=== PATIENT | female | born 1960 | race Caucasian/White ===

== ENCOUNTER → 2017-10-16 | Outpatient (CLI) | payer OTHER | LOC: CIMAGING 12:11 | PROVIDERS: ATTEND Family Medicine | DX: Z12.31 Encounter for screening mammogram for malignant neoplasm of breast (principal) | CPT/HCPCS: G0202 ==

== ENCOUNTER → 2018-06-23 | Outpatient (CLI) | payer OTHER | DX: M79.621 Pain in right upper arm (principal) ==

== ENCOUNTER 2018-07-25 18:32 | Emergency (ER) | payer OTHER ==
[2018-07-25] MEDS ORDERED: NS 1,000 ML IV ONE ×3 (19:02→23:05)
--- NOTE | 2018-07-25 19:28 | CPEKG ---
Test Reason : OPEN Blood Pressure : / mmHG Vent. Rate : 088 BPM Atrial Rate : 088 BPM P-R Int : 145 ms QRS Dur : 100 ms QT Int : 356 ms P-R-T Axes : 071 064 071 degrees QTc Int : 431 ms Sinus rhythm Confirmed by Reymundo Cutler ([id number]) on 07/25/2018 7:27:54 PM Referred By: Confirmed By:Reymundo Cutler
--- NOTE | 2018-07-25 19:32 | EDPHY ---
H & P Stated Complaint: Fainted twice yesterday . No injury. Chills . Time Seen by Provider: 07/25/18 18:49 HPI/ROS: This patient complains of generalized weakness, nausea and syncope x2. Patient developed slight increase in her loose stools from her baseline 3 or 4 day over the past 3 days. She also had associated nausea. She explains that she has rested in bed in been taking mostly fluids because of nausea and her is worried that if she ate solid food she would vomit. She limited her p.o. Food intake to soup and has been drinking fluids with occasional piece of toast with peanut butter. Last night at 9:00 p.m. She felt lightheaded while in her bedroom and mention this to her who walked over and caught her as she had a syncopal episode using her down to the floor where she was briefly unconscious he estimates under a minute and then felt weak on the floor for approximately 10 min prior to being able to stand up again. Then at 2:00 a.m. This morning While having a bowel movement she had a syncopal episode on the toilet as well with her at her side again. This was fleeting lasting only a few seconds per . She did not fall to the floor from that episode. Due to ongoing feeling of generalized weakness and nausea she came in for further evaluation. ROS: Constitutional: No fevers. Positive fatigue. HEENT: No URI symptoms. No sore throat. Pulmonary: No cough shortness of breath Cardiovascular: No chest pain heart palpitations or lower extremity swelling. She does have lower extremity pain left lower extremity. She attributes this to muscle cramping from potassium issues. 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 She reports typically having 4 episodes of loose stool a day on average in does not report any significant change from this recently. She does have some mild bloating and flatulence recently but no significant pain has no abdominal pain currently. No bloody stools. Nausea but no vomiting. : No dysuria frequency urgency. Integumentary: No rash pallor diaphoresis Musculoskeletal: Leg cramps as above. No recent injuries. She also complains of low back pain that she thinks is musculoskeletal due to lying in bed for 2 days and describes this is mild in achy in nature. 10 point review of symptoms is performed and otherwise negative with exception of pertinent positives and negatives listed in HPI and ROS Source: Patient, Family (Her also provides history.) Exam Limitations: No limitations - Medical/Surgical History Other PMH: intestinal bypass. Csec x 3. eletrolyte disturbance. Hypothyroid. She states that her blood pressure is low at baseline but does not know at her baseline BP runs. - Family History Significant Family History: Vascular disease (Her mother had a history of DVTs) - Social History Smoking Status: Never smoked Alcohol Use: None Drug Use: None - Physical Exam Exam: General Appearance: Alert, no distress. Eyes: Pupils equal and round no pallor or injection. ENT, Mouth: Mucous membranes dry. Respiratory: There are no retractions, lungs are clear to auscultation. Cardiovascular: Regular rate and rhythm. No murmur gallop rub. No peripheral edema. She does have left calf tenderness and negative Homans Gastrointestinal: Hyperactive bowel sounds, soft, nontender. No significant bloating at this time Back: No CVA tenderness Neurological: GCS 15 with no focal deficits. Skin: Warm and dry, no rashes. Musculoskeletal: Neck is supple nontender. Extremities are symmetrical, full range of motion. Psychiatric: Mood and affect are normal DIFFERENTIAL DIAGNOSIS: After history and physical exam differential diagnosis was considered for viral illness, dehydration, metabolic disarray, myocardial ischemic disease, vasovagal syncope, DVT Constitutional: Initial Vital Signs Temperature (C) 37.7 C 07/25/18 18:44 Heart Rate 93 07/25/18 18:44 Respiratory Rate 16 07/25/18 18:44 Blood Pressure 84/54 L 07/25/18 18:44 O2 Sat (%) 100 07/25/18 18:44 O2 Delivery Mode Room Air Allergies/Adverse Reactions: Penicillins Allergy (Verified 07/25/18 18:50) Home Medications: Medication Instructions Recorded [place] Thyroid 07/25/18 Calcium 07/25/18 Potassium Cl 07/25/18 Medical Decision Making - Diagnostics EKG Interpretation: 12 lead EKG performed at 7:18 p.m. Reveals sinus rhythm at 88. Intervals: Normal throughout [place]: Normal throughout ST segments: Normal throughout Overall assessment: Normal EKG Imaging Results: Imaging Impressions Extremity Venous Study 07/25/18 19:37 Impression: Short segment thrombus distal right peroneal vein. Otherwise, no additional deep venous thrombosis in the right and left lower extremity. Findings discussed with Reymundo Cutler M.D. at 21:09 hour, 07/25/2018. Chest X-Ray 07/25/18 20:33 Impression: Normal chest x-ray. Chest/Thorax CTA 07/25/18 21:12 Impression: 1. No evidence of pulmonary embolus using CT protocol. 2. Haziness in the perinephric fat over the kidneys superiorly right side more than left. Findings are nonspecific. Consider pyelonephritis. 3. 1 cm gallstone identified. Findings discussed with Reymundo Cutler M.D. at 22:14 hour, 07/25/2018. Two view chest x-ray: Normal by my interpretation Imaging: Discussed imaging studies w/ yard caller Radiologist (Doppler ultrasound and CT angio chest), I viewed and interpreted images myself (Chest x-ray) ED Course/Re-evaluation: IV normal saline bolus Saline bolus with resolution of Hypotension Tylenol p.o. With resolution of fever. After review of CT angio chest with radiologist-no PE or other pneumonic processes but the upper kidneys are visualized and there is perinephric stranding consistent with right kidney inflammation/infection. She is then treated with Levaquin IV it (penicillin causes anaphylaxis). Lovenox 1 mg/kg Discussion Given patient's urine dip finding here of leukocytes, fevers and perinephric stranding on CT presentation is most consistent with pyelonephritis. The patient also has a small right lower extremity DVT treated with Lovenox. Though she has findings consistent with pyelonephritis and syncope, SIRS criteria is negative for sepsis. CT angio chest ruled out pulmonary embolism. She has a mildly low potassium treated with supplemental oral potassium. Her nausea vomiting or controlled with Zofran. I spoke with Dr. Soto-hospitalist at [facility] were patient requests admission due to proximity to her home. He accepts patient for admission to a med bed at [facility] The time of transfer the patient is stable on her 3rd L saline bolus with blood pressure in the high 90s and heart rate in the low 70s. I answered all the patient's questions prior to transfer. - Data Points Laboratory Results: 07/25/18 07/25/18 07/25/18 21:23 20:25 19:16 POC Sodium 138 mEq/L mEq/L (135-145) POC Potassium 3.1 mEq/L L mEq/L (3.3-5.0) POC Chloride 104.0 mEq/L mEq/L (97-110) POC Total CO2 21 mEq/L L mEq/L (22-31) POC BUN 14 mg/dL mg/dL (7-23) POC Creatinine 1.1 mg/dL H mg/dL (0.6-1.0) POC Glucose 114 mg/dL H mg/dL (70-100) POC Calcium 7.2 mg/dL L mg/dL (8.5-10.4) POC Total Bilirubin 4.4 mg/dL H mg/dL (0.1-1.4) POC GGT < 5 IU/L L IU/L (5-65) POC AST 25 IU/L IU/L (14-46) POC ALT 16 IU/L IU/L (9-52) POC Alk Phosphatase 39 IU/L IU/L (38-126) POC Troponin I 0.01 ng/mL ng/mL (0.00-0.08) POC Total Protein 6.5 g/dL g/dL (6.3-8.2) POC Albumin 3.7 g/dL g/dL (3.5-5.0) POC Amylase 35 IU/L IU/L (30-110) POC D-dimer is very elevated greater than 5000 POC urine dip: Trace leukocytes and 1+ protein. Otherwise normal Urine micro and culture pending POC Lactate is normal at 0.67 Medications Given: Levofloxacin/Dextrose (Levaquin 750 Mg (Premix)) 150 mls @ 100 mls/hr IV EDNOW ONE PRN Reason: Protocol Stop: 07/25/18 23:52 Last Admin: 07/25/18 22:39 Dose: 150 mls Discontinued Medications Acetaminophen (Tylenol) 1,000 mg PO EDNOW ONE Stop: 07/25/18 20:18 Last Admin: 07/25/18 20:19 Dose: 1,000 mg Enoxaparin Sodium (Lovenox) 80 mg SC EDNOW ONE Stop: 07/25/18 22:35 Last Admin: 07/25/18 22:54 Dose: 80 mg Sodium Chloride (Ns) 1,000 mls @ 0 mls/hr IV EDNOW ONE; Wide Open PRN Reason: Protocol Stop: 07/25/18 19:03 Last Admin: 07/25/18 19:15 Dose: 1,000 mls Sodium Chloride (Ns) 1,000 mls @ 0 mls/hr IV ONCE ONE; Wide Open PRN Reason: Protocol Stop: 07/25/18 20:33 Last Admin: 07/25/18 21:27 Dose: 1,000 mls Ondansetron HCl (Zofran) 4 mg IVP EDNOW ONE Stop: 07/25/18 19:39 Last Admin: 07/25/18 19:53 Dose: 4 mg Potassium Chloride (Potassium Chloride Oral Liquid) 20 meq PO EDNOW ONE Stop: 07/25/18 22:36 Last Admin: 07/25/18 22:54 Dose: 20 meq Point of Care Test Results: CBC CBC Collection Date 07/25/18 CBC Collection Time 19:10 WBC 9.3 RBC 4 HGB 12.9 HCT 37.9 PLT 140 Neut # 8.5 Neut 91.1 LYMPH # 0.6 LYMPH 6.3 Other WBC # 0.2 Other WBC 2.6 MCV 94.8 Chemistry 07/25/18 07/25/18 07/25/18 21:23 20:25 19:16 POC Sodium 138 mEq/L mEq/L (135-145) POC Potassium 3.1 mEq/L L mEq/L (3.3-5.0) POC Chloride 104.0 mEq/L mEq/L (97-110) POC Total CO2 21 mEq/L L mEq/L (22-31) POC BUN 14 mg/dL mg/dL (7-23) POC Creatinine 1.1 mg/dL H mg/dL (0.6-1.0) POC Glucose 114 mg/dL H mg/dL (70-100) POC Calcium 7.2 mg/dL L mg/dL (8.5-10.4) POC Total Bilirubin 4.4 mg/dL H mg/dL (0.1-1.4) POC GGT < 5 IU/L L IU/L (5-65) POC AST 25 IU/L IU/L (14-46) POC ALT 16 IU/L IU/L (9-52) POC Alk Phosphatase 39 IU/L IU/L (38-126) POC Troponin I 0.01 ng/mL ng/mL (0.00-0.08) POC Total Protein 6.5 g/dL g/dL (6.3-8.2) POC Albumin 3.7 g/dL g/dL (3.5-5.0) POC Amylase 35 IU/L IU/L (30-110) D-Dimer D-Dimer Collection Date 07/25/18 D-Dimer Collection Time 19:10 D-Dimer (ng/ml) >5000 Liver Function Tests LFT Collection Date 07/25/18 LFT Collection Time 19:10 Urine Dip Collection Date 07/25/18 Collection Time 21:20 Specific [place] (1.002-1.030) 1.010 PH (5.0-7.5) 6.0 Leukocytes (Negative) Trace Nitrites (Negative) Negative Protein (Negative) 2+ Glucose (Negative) Negative Ketones (Negative) Negative Urobilnogen (0.2-1.0 EU) 0.2 Bilirubin (Negative) Negative Blood (Negative) 1+ Departure - Departure Disposition: Home, Routine, Self-Care Clinical Impression: Pyelonephritis Diarrhea Qualifiers: Diarrhea type: unspecified type Qualified Code(s): R19.7 - Diarrhea, unspecified Fever Qualifiers: Fever type: unspecified Qualified Code(s): R50.9 - Fever, unspecified Syncope Qualifiers: Syncope type: unspecified Qualified Code(s): R55 - Syncope and collapse DVT (deep venous thrombosis) Qualifiers: DVT location: lower extremity Affected thrombotic vein of extremity: unspecified lower extremity distal vein Chronicity: acute Laterality: right Qualified Code(s): I82.4Z1 - Acute embolism and thrombosis of unspecified deep veins of right distal lower extremity Condition: Fair Referrals: NONE *PRIMARY CARE P,. [Primary Care Provider] - As per Instructions
[2018-07-25] MEDS ORDERED: ONDANSETRON 4 MG/2 ML VIAL IVP ONE (19:38)
[2018-07-25] MEDS ORDERED: ACETAMINOPHEN 500 MG TAB PO ONE (20:17)
[2018-07-25] MEDS ORDERED: ACETAMINOPHEN 500 MG TAB ONE (20:18)
[2018-07-25] MEDS ORDERED: IOPAMIDOL (ISOVUE 370) 100 ML BTL IV ONE (21:30)
[2018-07-25] MEDS ORDERED: ENOXAPARIN 80 MG/0.8 ML SYR SC ONE (22:34)
[2018-07-25] MEDS ORDERED: POTASSIUM CL 20 MEQ/15 ML UDCUP PO ONE (22:35)
[2018-07-25 23:26] LABS: INR 1.24 (0.83-1.16); PROTIME(PATIENT) 15.8 SEC (12.0-15.0)
[2018-07-26 00:16] VITALS: BP 92/60
== END 2018-07-26 00:17 | disposition short-term general hospital (02) ==
LOC: CED 18:32
DX: R55 Syncope and collapse (principal); R19.7 Diarrhea, unspecified; R50.9 Fever, unspecified; R11.0 Nausea; R53.83 Other fatigue; I10 Essential (primary) hypertension
CPT/HCPCS: 71046-PO; 71275-PO; 80048-PO; 80076-PO; 82150-PO; 83605-PO; 84484-PO; 93970-PO; 96365; 96366; J1650; J1956; J2405; Q9967

== ENCOUNTER → 2018-10-18 | Outpatient (CLI) | payer OTHER | LOC: CIMAGING 12:25 | PROVIDERS: ATTEND Family Medicine | DX: Z12.31 Encounter for screening mammogram for malignant neoplasm of breast (principal) ==

== ENCOUNTER → 2018-10-22 | Outpatient (CLI) | payer OTHER | LOC: CIMAGING 17:48 | PROVIDERS: ATTEND Internal Medicine Hematology & Oncology | DX: Z86.718 Personal history of other venous thrombosis and embolism (principal) | CPT/HCPCS: 93971-PO ==